=== PATIENT | female | born 1955 | race Two or more races ===

== ENCOUNTER 2018-08-10 07:52 | Day surgery (SDC) | payer BC ==
[2018-08-10] MEDS ORDERED: LIDOCAINE 2% MDV (20MG/ML) 20ML VIAL IV ONE (07:53)
[2018-08-10] MEDS ORDERED: PROPOFOL 10 MG/ML VIAL IV ONE (07:53)
--- NOTE | 2018-08-11 10:40 | Operative Note ---
DATE OF SURGERY: 08/10/2018 OPERATION: COLONOSCOPY to the cecum. INDICATION: Colonoscopy in the past demonstrating 3 adenoma polyps which were removed. She returns at this time for surveillance. She denies any GI symptoms at this time. ANESTHESIA: Intravenous sedation was administered by the department of anesthesiology and included Diprivan titrated to effect. PROCEDURE: Following informed consent from this alert individual including a discussion of the risks and benefits of the procedure and an opportunity for the patient to ask questions, the patient was in the left lateral decubitus position. A digital rectal examination was performed. No abnormalities were noted. Following this, the Olympus [id number] video colonoscope was inserted into the rectum without resistance. The rectal mucosa had a normal appearance with normal folds and distensibility. The colonoscope was advanced up through the colon to the level of the cecum without much difficulty. Throughout the bowel the mucosa appeared normal, the folds were normal, and the bowel was fairly well distensible. The cecum was defined by noting the appendiceal orifice and ileocecal valve. From the base of the cecum, the colonoscope was then slowly withdrawn. The colon preparation was good. No abnormalities were detected. Retroflexion in the rectum revealed small internal hemorrhoids. The endoscope was straightened and removed. The patient tolerated the procedure well and was returned to the recovery area in stable condition. IMPRESSION: Unremarkable colonoscopy to the cecum with the exception of small internal hemorrhoids. There was a small scar noted in the sigmoid colon compatible with previous polypectomy site. RECOMMENDATIONS: The patient was advised to have recheck colonoscopy in 5 years' time or sooner should problems arise. Followup will otherwise be with Dr. Landeros. As always, thank you for allowing me to participate in the care of your patient. CC: Dr. Tigre HOOKER
== END 2018-08-10 10:12 | disposition home or self-care (01) ==
LOC: HOP 07:52
PROVIDERS: ATTEND Internal Medicine Gastroenterology
DX: Z12.11 Encounter for screening for malignant neoplasm of colon (principal); Z86.010 Personal history of colon polyps; K64.8 Other hemorrhoids
CPT/HCPCS: 00812; G0105